=== PATIENT | female | born 1995 | race Two or more races ===

== ENCOUNTER 2021-07-20 10:39 | Emergency (ER) | payer MEDICAID, OTHER ==
[~2021-07-20] VITALS: Ht 167.6 cm; Wt 90.7 kg
[2021-07-20 10:50] VITALS: BP 101/67
== END 2021-07-20 13:08 | disposition home or self-care (01) ==
LOC: ER 10:39
DX: U07.1 COVID-19 (principal); J20.9 Acute bronchitis, unspecified
CPT/HCPCS: 71045